=== PATIENT | female | born 1985 | race Two or more races ===

== ENCOUNTER 2019-02-25 13:56 | Emergency (ER) | payer BC ==
[~2019-02-25] VITALS: Ht 160 cm; Wt 99.1 kg
[2019-02-25] MEDS ORDERED: MAALOX/HYOSCYAMINE/LIDOCAINE 45 ML BTL PO ONE (15:00)
[2019-02-25] MEDS ORDERED: ONDANSETRON ODT 4 MG PO ONE (15:00)
--- NOTE | 2019-02-25 15:00 | NUR ---
PATIENT STEADY AMBULATION TO BATHROOM, RESTING IN BED.
[2019-02-25] MEDS ORDERED: ONDANSETRON ODT 4 MG ONE (15:06)
[2019-02-25] MEDS ORDERED: MAALOX/HYOSCYAMINE/LIDOCAINE 45 ML BTL ONE (15:06)
[2019-02-25 15:32] VITALS: BP 104/71
--- NOTE | 2019-02-25 16:07 | NUR ---
DISCHARGE INSTRUCTIONS REVIEWED
== END 2019-02-25 16:10 | disposition home or self-care (01) ==
LOC: ED 16:04
DX: K21.9 Gastro-esophageal reflux disease without esophagitis (principal); R11.2 Nausea with vomiting, unspecified
CPT/HCPCS: 93005; 99283; Q0162